=== PATIENT | male | born 1995 | race Caucasian/White ===

== ENCOUNTER 2017-08-31 22:25 | Emergency (ER) | payer OTHER ==
[2017-08-31 22:33] VITALS: TEMP 98.1
[2017-08-31 22:59] LABS: % IMMATURE GRANULYOCYTES 0.4 % (0.0-1.1); ABSOLUTE IMMATURE GRANULOCYTES 0.03 10^3/uL (0.00-0.10); ADD DIFF? NO; ADD MORPH? NO; ADD SCAN? NO; ATYPICAL LYMPHOCYTE FLAG 0 (0-99); FRAGMENT RBC FLAG 0 (0-99); HEMATOCRIT 47.1 % (40.0-51.0); HEMOGLOBIN 16.8 g/dL (13.7-17.5); LEFT SHIFT FLG 0 (0-99); LIPEMIA HEMOLYSIS FLAG 90 (0-99); MEAN CELL HEMOGLOBIN 31.5 pg (27.9-34.1); MEAN CELL HEMOGLOBIN CONCENTR. 35.7 g/dL (32.4-36.7); MEAN CELL VOLUME 88.4 fL (81.5-99.8); MEAN PLATELET VOLUME 9.9 fL (8.7-11.7); PLATELET CLUMPS FLAG 0 (0-99); PLATELET COUNT 196 10^3/uL (150-400); RED BLOOD CELL COUNT 5.33 10^6/uL (4.40-6.38)
--- NOTE | 2017-08-31 23:01 | EDPHY ---
H & P Stated Complaint: slurring words, LIU, N/V yesterday Time Seen by Provider: 08/31/17 22:38 HPI/ROS: Chief Complaint: Seizure HPI: 22-year-old male whose had flu-like symptoms for the last several days had a witnessed possible seizure at 9 o'clock this evening. Patient is girlfriend states that he came home from work early. He has had several episodes of nausea and vomiting. Patient began feeling unwell in stood up. He then proceeded to collapse to the ground and had approximately 20 seconds of whole body shaking. Patient then seemed quite confused when he woke up. He continues to seemed confused. Does have a history of benzodiazepine abuse and states he has been trying to cut back. He also has been cutting back on alcohol. No history of seizures in the past. No head injury. Does have a mild headache. No neck pain or stiffness. No chest pain or abdominal pain. He also states that he has been having significantly increasing heavy workouts recently and has been taking protein supplements. ROS: 10 point Review of Systems is negative except as noted in the HPI. PMH: Substance abuse Social History: Positive smoking, some alcohol, history of benzodiazepine abuse Family History: non-contributory Physical Exam: Gen: Awake, Alert, mildly confused HEENT: Nose: no rhinorrhea Eyes: PERRLA, EOMI Mouth: Moist mucosa Neck: Supple, no JVD, no meningismus Chest: nontender, lungs clear to auscultation Heart: S1, S2 normal, no murmur Abd: Soft, non-tender, no guarding Back: no CVA tenderness, no midline tenderness Ext: no edema, non-tender Skin: no rash Neuro: CN II-XII intact, Sensation grossly intact, Strength 5/5 in bilateral upper and lower extremities - Personal History Current Tetanus/Diphtheria Vaccine: Yes - Medical/Surgical History Hx Asthma: No Hx Chronic Respiratory Disease: No Hx Diabetes: No Hx Cardiac Disease: No Hx Renal Disease: No Hx Cirrhosis: No Hx Alcoholism: No Hx HIV/AIDS: No Hx Splenectomy or Spleen Trauma: No Other PMH: denies - Social History Smoking Status: Current some day smoker Constitutional: Initial Vital Signs Temperature (C) 36.7 C 08/31/17 22:30 Heart Rate 82 08/31/17 22:30 Respiratory Rate 18 08/31/17 22:30 Blood Pressure 91/40 L 08/31/17 22:30 O2 Sat (%) 94 08/31/17 22:30 O2 Delivery Mode Room Air Allergies/Adverse Reactions: amoxicillin [Amoxicillin] Allergy (Verified 08/31/17 22:34) Rash Home Medications: Medication Instructions Recorded NK [No Known Home Meds] 08/31/17 Medical Decision Making - Diagnostics Imaging Results: Imaging Impressions Chest X-Ray 08/31/17 22:49 Impression: Mild central perihilar bronchial wall thickening, but no focal infiltrate. Head CT 08/31/17 22:51 Impression: There is no acute abnormality identified on this unenhanced CT evaluation. If there is further clinical concern regarding the patient's symptoms, MR imaging is suggested, if not otherwise contraindicated. Findings were discussed with Elliott Mike MD at 23:25, on 08/31/2017. ED Course/Re-evaluation: Patient's mental status has cleared. CT scan of the brain is negative. Blood work is unremarkable. Urinalysis shows dehydration. Patient will be discharged with referral for outpatient follow up with Neurology. He has been cautioned not to drive. Patient is afebrile. He has no meningismus. Is otherwise very well appearing. - Data Points Laboratory Results: Laboratory Results 08/31/17 22:47 08/31/17 22:47 09/01/17 08/31/17 08/31/17 01:33 22:47 22:47 WBC 7.87 10^3/uL 10^3/uL (3.80-9.50) RBC 5.33 10^6/uL 10^6/uL (4.40-6.38) Hgb 16.8 g/dL g/dL (13.7-17.5) Hct 47.1 % % (40.0-51.0) MCV 88.4 fL fL (81.5-99.8) MCH 31.5 pg pg (27.9-34.1) MCHC 35.7 g/dL g/dL (32.4-36.7) RDW 12.0 % % (11.5-15.2) Plt Count 196 10^3/uL 10^3/uL (150-400) MPV 9.9 fL fL (8.7-11.7) Neut % (Auto) 83.3 % H % (39.3-74.2) Lymph % (Auto) 9.9 % L % (15.0-45.0) Charles % (Auto) 6.1 % % (4.5-13.0) Eos % (Auto) 0.0 % L % (0.6-7.6) Baso % (Auto) 0.3 % % (0.3-1.7) Nucleat RBC Rel Count 0.0 % % (0.0-0.2) Absolute Neuts (auto) 6.56 10^3/uL H 10^3/uL (1.70-6.50) Absolute Lymphs (auto) 0.78 10^3/uL L 10^3/uL (1.00-3.00) Absolute Monos (auto) 0.48 10^3/uL 10^3/uL (0.30-0.80) Absolute Eos (auto) 0.00 10^3/uL L 10^3/uL (0.03-0.40) Absolute Basos (auto) 0.02 10^3/uL 10^3/uL (0.02-0.10) Absolute Nucleated RBC 0.00 10^3/uL 10^3/uL (0-0.01) Immature Gran % 0.4 % % (0.0-1.1) Immature Gran # 0.03 10^3/uL 10^3/uL (0.00-0.10) Sodium 138 mEq/L mEq/L (134-144) Potassium 3.9 mEq/L mEq/L (3.5-5.2) Chloride 101 mEq/L mEq/L (97-110) Carbon Dioxide 24 mEq/l mEq/l (22-31) Anion Gap 13 mEq/L mEq/L (8-16) BUN 8 mg/dL mg/dL (7-23) Creatinine 0.8 mg/dL mg/dL (0.7-1.3) Estimated GFR > 60 Glucose 182 mg/dL H mg/dL (70-100) POC Glucose Calcium 9.4 mg/dL mg/dL (8.5-10.4) Urine Color YELLOW Urine Appearance MODERATELY TURBID Urine pH 5.0 (5.0-7.5) Ur Specific [place] 1.025 (1.002-1.030) Urine Protein 1+ H (NEGATIVE) Urine Ketones 2+ H (NEGATIVE) Urine Blood NEGATIVE (NEGATIVE) Urine Nitrate NEGATIVE (NEGATIVE) Urine Bilirubin NEGATIVE (NEGATIVE) Urine Urobilinogen NEGATIVE EU EU (0.2-1.0) Ur Leukocyte Esterase NEGATIVE (NEGATIVE) Urine RBC Pending Urine WBC Pending Ur Epithelial Cells Pending Urine Glucose NEGATIVE (NEGATIVE) Urine Opiates Screen Pending Urine Barbiturates Pending Ur Phencyclidine Scrn Pending Ur Amphetamine Screen Pending U Benzodiazepines Scrn Pending Urine Cocaine Screen Pending U Marijuana (THC) Screen Pending 08/31/17 22:42 WBC RBC Hgb Hct MCV MCH MCHC RDW Plt Count MPV Neut % (Auto) Lymph % (Auto) Charles % (Auto) Eos % (Auto) Baso % (Auto) Nucleat RBC Rel Count Absolute Neuts (auto) Absolute Lymphs (auto) Absolute Monos (auto) Absolute Eos (auto) Absolute Basos (auto) Absolute Nucleated RBC Immature Gran % Immature Gran # Sodium Potassium Chloride Carbon Dioxide Anion Gap BUN Creatinine Estimated GFR Glucose POC Glucose 178 mg/dL H mg/dL (70-100) Calcium Urine Color Urine Appearance Urine pH Ur Specific [place] Urine Protein Urine Ketones Urine Blood Urine Nitrate Urine Bilirubin Urine Urobilinogen Ur Leukocyte Esterase Urine RBC Urine WBC Ur Epithelial Cells Urine Glucose Urine Opiates Screen Urine Barbiturates Ur Phencyclidine Scrn Ur Amphetamine Screen U Benzodiazepines Scrn Urine Cocaine Screen U Marijuana (THC) Screen Medications Given: Discontinued Medications Sodium Chloride (Ns) 1,000 mls @ 0 mls/hr IV EDNOW ONE; Wide Open PRN Reason: Protocol Stop: 09/01/17 01:21 Last Admin: 09/01/17 01:30 Dose: 1,000 mls Point of Care Test Results: 08/31/17 22:42 POC Glucose 178 H Departure - Departure Disposition: Home, Routine, Self-Care Clinical Impression: Seizure Condition: Good Instructions: New-Onset Seizure in Adults (ED) Additional Instructions: Follow up with Neurology in 3-4 days for further evaluation. Return to the emergency department for further seizures, nausea, vomiting, worsening headache, fevers, chills, or any other concerns. Referrals: Dillon Armas MD [Primary Care Provider] - As per Instructions Elliott Xiao DO [Medical Doctor] - As per Instructions
[2017-08-31 23:09] LABS: ANION GAP 13 mEq/L (8-16); CALCIUM 9.4 mg/dL (8.5-10.4); CARBON DIOXIDE 24 mEq/l (22-31); CHLORIDE 101 mEq/L (97-110); CREATININE 0.8 mg/dL (0.7-1.3); GLOMERULAR FILTRATION RATE > 60; GLUCOSE 182 mg/dL (70-100); POTASSIUM 3.9 mEq/L (3.5-5.2); SODIUM 138 mEq/L (134-144)
[2017-09-01] MEDS ORDERED: NS 1,000 ML IV ONE (01:20)
[2017-09-01 01:40] LABS: COLOR YELLOW; LEUKOCYTE ESTERASE,URINE NEGATIVE (NEGATIVE); NITRITE,URINE NEGATIVE (NEGATIVE)
[2017-09-01 01:46] LABS: AMORPHOUS PRESENT /hpf (NONE-1+); MUCUS 2+ /lpf (NONE-1+)
[2017-09-01 03:11] VITALS: BP 121/64; PULSE 59; RESP 14; O2SAT 96
== END 2017-09-01 03:11 | disposition home or self-care (01) ==
DX: R56.9 Unspecified convulsions (principal); F17.200 Nicotine dependence, unspecified, uncomplicated; E86.9 Volume depletion, unspecified
CPT/HCPCS: 80305

== ENCOUNTER 2017-10-11 00:01 | Emergency (ER) | payer OTHER ==
[2017-10-11] MEDS ORDERED: NS 1,000 ML IV ONE (00:46)
[2017-10-11 00:48] LABS: % IMMATURE GRANULYOCYTES 0.7 % (0.0-1.1); ABSOLUTE IMMATURE GRANULOCYTES 0.04 10^3/uL (0.00-0.10); ADD DIFF? NO; ADD MORPH? NO; ADD SCAN? NO; ATYPICAL LYMPHOCYTE FLAG 10 (0-99); FRAGMENT RBC FLAG 0 (0-99); HEMATOCRIT 49.3 % (40.0-51.0); HEMOGLOBIN 17.4 g/dL (13.7-17.5); LEFT SHIFT FLG 0 (0-99); LIPEMIA HEMOLYSIS FLAG 90 (0-99); MEAN CELL HEMOGLOBIN 30.6 pg (27.9-34.1); MEAN CELL HEMOGLOBIN CONCENTR. 35.3 g/dL (32.4-36.7); MEAN CELL VOLUME 86.6 fL (81.5-99.8); MEAN PLATELET VOLUME 9.9 fL (8.7-11.7); PLATELET CLUMPS FLAG 10 (0-99); PLATELET COUNT 196 10^3/uL (150-400); RED BLOOD CELL COUNT 5.69 10^6/uL (4.40-6.38); RED CELL DISTRIBUTION WIDTH 11.3 % (11.5-15.2)
[2017-10-11 00:57] LABS: ALANINE AMINOTRANSFERASE 40 IU/L (21-72); ALBUMIN 5.1 g/dL (3.5-5.0); ALKALINE PHOSPHATASE 51 IU/L (38-126); ANION GAP 18 mEq/L (8-16); ASPARTATE AMINOTRANSFERASE 28 IU/L (17-59); CALCIUM 9.8 mg/dL (8.5-10.4); CARBON DIOXIDE 25 mEq/l (22-31); CHLORIDE 104 mEq/L (97-110); CREATININE 0.9 mg/dL (0.7-1.3); ETHANOL SERUM < 10 mg/dL (0-10); GLOMERULAR FILTRATION RATE > 60; GLUCOSE 82 mg/dL (70-100); POTASSIUM 4.3 mEq/L (3.5-5.2); SODIUM 147 mEq/L (134-144); TOTAL PROTEIN 7.9 g/dL (6.3-8.2)
--- NOTE | 2017-10-11 01:33 | EDPHY ---
H & P Stated Complaint: possible SZ Time Seen by Provider: 10/11/17 00:33 HPI/ROS: HPI The patient presents brought in by his mother with altered mental status. Apparently, the patient was found by his roommate sleeping on the couch and was confused, and difficult to arouse. Apparently, he smelled like vomit and the roommate noticed that he had a bump on his forehead as well as some abrasions to his hands. The patient's mother was contacted and she went to his apartment to get him. As she noticed that he was very sleepy but he was able to walk. The patient was diagnosed with a seizure on an ER visit on August 31. At that time he had a normal CT scan of his head performed. He followed up with his primary care doctor and has not followed up with Neurology. He has been feeling well since then. The patient denies any complaints currently. REVIEW OF SYSTEMS Constitutional: No fever, no chills. Eyes: No discharge. ENT: No sore throat. Cardiovascular: No chest pain, no palpitations. Respiratory: No cough, no shortness of breath. Gastrointestinal: No abdominal pain, no vomiting. Genitourinary: No hematuria. Musculoskeletal: No back pain. Skin: No rashes. Neurological: No headache. PMHx: Possible seizure August 31, seen in the ER for this Soc Hx: College student, history of benzodiazepine use in LSD use PHYSICAL General Appearance: Tired appearing, arouses easily, no distress Eyes: Pupils equal and round no pallor or injection ENT, Mouth: Mucous membranes moist Head: There is a 2 cm scalp hematoma to the right frontal region Respiratory: There are no retractions, lungs are clear to auscultation Cardiovascular: Regular rate and rhythm Gastrointestinal: Abdomen is soft and non-tender, no masses, bowel sounds normal Neurological: Sleepy, oriented x3, cranial nerves 2-12 intact, 5/5 strength in upper and lower extremities which is symmetric, no pronator drift, normal finger to nose testing Skin: Warm and dry, no rashes Musculoskeletal: Neck is supple non tender Extremities: symmetrical, full range of motion Psychiatric: Patient is oriented X 3, there is no agitation Source: Patient, Family, Old records Exam Limitations: Clinical condition - Personal History Current Tetanus/Diphtheria Vaccine: Yes Current Tetanus Diphtheria and Acellular Pertussis (TDAP): Yes - Medical/Surgical History Hx Asthma: No Hx Chronic Respiratory Disease: No Hx Diabetes: No Hx Cardiac Disease: No Hx Renal Disease: No Hx Cirrhosis: No Hx Alcoholism: No Hx HIV/AIDS: No Hx Splenectomy or Spleen Trauma: No Other PMH: SZ - Social History Smoking Status: Current some day smoker Constitutional: Initial Vital Signs Temperature (C) 36.7 C 10/11/17 00:04 Heart Rate 83 10/11/17 00:04 Respiratory Rate 16 10/11/17 00:04 Blood Pressure 103/72 10/11/17 00:04 O2 Sat (%) 97 10/11/17 00:04 O2 Delivery Mode Room Air Allergies/Adverse Reactions: amoxicillin [Amoxicillin] Allergy (Verified 10/11/17 00:03) Rash Home Medications: Medication Instructions Recorded NK [No Known Home Meds] 08/31/17 Medical Decision Making Differential Diagnosis: 22-year-old male, recent diagnosis of seizure, presents with confusion and lethargy for the last several hours, found by his roommate sleeping on the couch with bump on his head. Differential diagnosis includes seizure with postictal state, substance abuse, alcohol intoxication, closed head injury. In the emergency department, patient was observed for several hours. Labs were checked and did reveal mild dehydration, otherwise unremarkable. He was reassessed several times and was initially confused, then became more awake and alert and fully oriented. It is possible that he had a seizure, however this is quite a prolonged postictal phase. He denied on several occasions using any drugs or alcohol, however admitted to the nurse that he has been taking clonazepam, which he does not have a prescription for. Urine toxicology was also positive for benzodiazepines. He was counseled on drug use and advised that he needs to stop using this medication. He will be discharged home with his mother. I have advised that he follow up with his primary care doctor. I did not pursue CT scan of his head given that he had improvement in his mental status while in the emergency department. - Data Points Laboratory Results: Laboratory Results 10/11/17 00:39 10/11/17 00:39 10/11/17 10/11/17 10/11/17 06:15 00:39 00:39 WBC 5.65 10^3/uL 10^3/uL (3.80-9.50) RBC 5.69 10^6/uL 10^6/uL (4.40-6.38) Hgb 17.4 g/dL g/dL (13.7-17.5) Hct 49.3 % % (40.0-51.0) MCV 86.6 fL fL (81.5-99.8) MCH 30.6 pg pg (27.9-34.1) MCHC 35.3 g/dL g/dL (32.4-36.7) RDW 11.3 % L % (11.5-15.2) Plt Count 196 10^3/uL 10^3/uL (150-400) MPV 9.9 fL fL (8.7-11.7) Neut % (Auto) 53.3 % % (39.3-74.2) Lymph % (Auto) 38.1 % % (15.0-45.0) [place] % (Auto) 5.8 % % (4.5-13.0) Eos % (Auto) 1.4 % % (0.6-7.6) Baso % (Auto) 0.7 % % (0.3-1.7) Nucleat RBC Rel Count 0.0 % % (0.0-0.2) Absolute Neuts (auto) 3.01 10^3/uL 10^3/uL (1.70-6.50) Absolute Lymphs (auto) 2.15 10^3/uL 10^3/uL (1.00-3.00) Absolute Monos (auto) 0.33 10^3/uL 10^3/uL (0.30-0.80) Absolute Eos (auto) 0.08 10^3/uL 10^3/uL (0.03-0.40) Absolute Basos (auto) 0.04 10^3/uL 10^3/uL (0.02-0.10) Absolute Nucleated RBC 0.00 10^3/uL 10^3/uL (0-0.01) Immature Gran % 0.7 % % (0.0-1.1) Immature Gran # 0.04 10^3/uL 10^3/uL (0.00-0.10) Sodium 147 mEq/L H mEq/L (134-144) Potassium 4.3 mEq/L mEq/L (3.5-5.2) Chloride 104 mEq/L mEq/L (97-110) Carbon Dioxide 25 mEq/l mEq/l (22-31) Anion Gap 18 mEq/L H mEq/L (8-16) BUN 13 mg/dL mg/dL (7-23) Creatinine 0.9 mg/dL mg/dL (0.7-1.3) Estimated GFR > 60 Glucose 82 mg/dL mg/dL (70-100) Calcium 9.8 mg/dL mg/dL (8.5-10.4) Total Bilirubin 1.0 mg/dL mg/dL (0.1-1.4) AST 28 IU/L IU/L (17-59) ALT 40 IU/L IU/L (21-72) Alkaline Phosphatase 51 IU/L IU/L (38-126) Total Protein 7.9 g/dL g/dL (6.3-8.2) Albumin 5.1 g/dL H g/dL (3.5-5.0) Urine Opiates Screen NEGATIVE (NEGATIVE) Urine Barbiturates NEGATIVE (NEGATIVE) Ur Phencyclidine Scrn NEGATIVE (NEGATIVE) Ur Amphetamine Screen NEGATIVE (NEGATIVE) U Benzodiazepines Scrn NON-NEGATIVE H (NEGATIVE) Urine Cocaine Screen NEGATIVE (NEGATIVE) U Marijuana (THC) Screen NEGATIVE (NEGATIVE) Ethyl Alcohol < 10 mg/dL mg/dL (0-10) Medications Given: Discontinued Medications Sodium Chloride (Ns) 1,000 mls @ 0 mls/hr IV EDNOW ONE; Wide Open PRN Reason: Protocol Stop: 10/11/17 00:47 Last Admin: 10/11/17 01:10 Dose: 1,000 mls Departure - Departure Disposition: Home, Routine, Self-Care Clinical Impression: Benzodiazepine misuse Altered mental status Qualifiers: Altered mental status type: disorientation Qualified Code(s): R41.0 - Disorientation, unspecified Condition: Good Instructions: Altered Mental Status (ED) Additional Instructions: I would like for you to follow up with your primary care doctor in the next 1-2 days. You should return to the emergency department if your worse in any way. Please be careful about alcohol and drug use as this can contribute to your symptoms. It is unclear if you had a seizure and because of this I think you may need a referral to a neurologist. Referrals: Dillon Armas MD [Primary Care Provider] - As per Instructions
[2017-10-11 06:59] VITALS: BP 103/55; PULSE 61; RESP 16; TEMP 98.2; O2SAT 98
== END 2017-10-11 06:57 | disposition home or self-care (01) ==
DX: R41.0 Disorientation, unspecified (principal); F19.988 Other psychoactive substance use, unspecified with other psychoactive substance-induced disorder; F17.200 Nicotine dependence, unspecified, uncomplicated; E86.9 Volume depletion, unspecified
CPT/HCPCS: 80305; G0480

== ENCOUNTER 2019-01-20 07:26 | Emergency (ER) | payer OTHER ==
--- NOTE | 2019-01-20 07:51 | EDPHY ---
H & P Time Seen by Provider: 01/20/19 07:47 HPI/ROS: Chief complaint. Anxiety HPI. Patient is a 23-year-old male presents with anxiety and inability to sleep. He has a history of substance abuse specifically benzodiazepine a use. He has been through treatment plan and no longer using benzodiazepine. 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 He works 60-80 hours per week and has had increased baseline anxiety to the point where he can't sleep. He would like mental health evaluation. He tells me he is not suicidal or homicidal. He fell skiing several days ago and has pain to the right anterior chest and is concerned he has a rib fracture. No shortness of breath however. No head injury or neck pain. ROS 10 systems were reviewed and negative with the exception of the elements mentioned in the history of present illness Past Medical/Surgical History: Substance abuse disorder, possible seizure, benzodiazepine abuse in the past Social History: Single, daily smoker, no alcohol Smoking Status: Current every day smoker Physical Exam: General Appearance: Alert well-developed male mild distress. Vital signs significant heart rate 105 Eyes: Pupils equal and round no pallor or injection. ENT, Mouth: Mucous membranes are moist. Respiratory: There are no retractions, lungs are clear to auscultation. Cardiovascular: Regular rate and rhythm. Gastrointestinal: Abdomen is soft and nontender, no masses, bowel sounds normal. Neurological: Awake and alert, sensory and motor exams grossly normal. Skin: Warm and dry, no rashes. Musculoskeletal: Neck is supple nontender. Tenderness to the right chest wall at about T6 midclavicular line Extremities symmetrical, full range of motion. Psychiatric: Patient is oriented X 3, there is no agitation. Constitutional: Initial Vital Signs Temperature (C) 37 C 01/20/19 07:31 Heart Rate 105 H 01/20/19 07:31 Respiratory Rate 16 01/20/19 07:31 Blood Pressure 157/94 H 01/20/19 07:31 O2 Sat (%) 94 01/20/19 07:31 O2 Delivery Mode Room Air Allergies/Adverse Reactions: amoxicillin [Amoxicillin] Allergy (Verified 10/11/17 00:03) Rash Home Medications: Medication Instructions Recorded Melatonin 01/20/19 Zolpidem Tartrate [Ambien] 10 mg PO HS PRN #5 tablet 01/20/19 Medical Decision Making - Diagnostics Imaging Results: Imaging Impressions Chest X-Ray 01/20/19 07:57 Impression: Normal. Chest x-ray interpreted by me is negative for fracture or pneumothorax Procedures: Mental health evaluation labs are obtained ED Course/Re-evaluation: Patient has been evaluated by mental health. They feel he is appropriate for outpatient management given him resources. They asked me if I would prescribe some sleep med for the next several days for the patient. - Data Points Laboratory Results: Laboratory Results 01/20/19 08:10 01/20/19 08:10 01/20/19 01/20/19 01/20/19 08:10 08:10 08:00 WBC 7.04 10^3/uL 10^3/uL (3.80-9.50) RBC 5.26 10^6/uL 10^6/uL (4.40-6.38) Hgb 16.5 g/dL g/dL (13.7-17.5) Hct 47.0 % % (40.0-51.0) MCV 89.4 fL fL (81.5-99.8) MCH 31.4 pg pg (27.9-34.1) MCHC 35.1 g/dL g/dL (32.4-36.7) RDW 11.4 % L % (11.5-15.2) Plt Count 234 10^3/uL 10^3/uL (150-400) MPV 9.7 fL fL (8.7-11.7) Neut % (Auto) 73.1 % % (39.3-74.2) Lymph % (Auto) 17.2 % % (15.0-45.0) [place] % (Auto) 8.9 % % (4.5-13.0) Eos % (Auto) 0.3 % L % (0.6-7.6) Baso % (Auto) 0.4 % % (0.3-1.7) Nucleat RBC Rel Count 0.0 % % (0.0-0.2) Absolute Neuts (auto) 5.14 10^3/uL 10^3/uL (1.70-6.50) Absolute Lymphs (auto) 1.21 10^3/uL 10^3/uL (1.00-3.00) Absolute Monos (auto) 0.63 10^3/uL 10^3/uL (0.30-0.80) Absolute Eos (auto) 0.02 10^3/uL L 10^3/uL (0.03-0.40) Absolute Basos (auto) 0.03 10^3/uL 10^3/uL (0.02-0.10) Absolute Nucleated RBC 0.00 10^3/uL 10^3/uL (0-0.01) Immature Gran % 0.1 % % (0.0-1.1) Immature Gran # 0.01 10^3/uL 10^3/uL (0.00-0.10) Sodium 138 mEq/L mEq/L (135-145) Potassium 4.0 mEq/L mEq/L (3.5-5.2) Chloride 105 mEq/L mEq/L (97-110) Carbon Dioxide 22 mEq/l mEq/l (22-31) Anion Gap 11 mEq/L mEq/L (6-14) BUN 14 mg/dL mg/dL (7-23) Creatinine 0.8 mg/dL mg/dL (0.7-1.3) Estimated GFR > 60 Glucose 101 mg/dL H mg/dL (70-100) Calcium 9.5 mg/dL mg/dL (8.5-10.4) Urine Opiates Screen NEGATIVE (NEGATIVE) Acetaminophen < 10 mcg/mL L mcg/mL (10-30) Urine Barbiturates NEGATIVE (NEGATIVE) Ur Phencyclidine Scrn NEGATIVE (NEGATIVE) Ur Amphetamine Screen NEGATIVE (NEGATIVE) U Benzodiazepines Scrn NEGATIVE (NEGATIVE) Urine Cocaine Screen NEGATIVE (NEGATIVE) U Marijuana (THC) Screen NON-NEGATIVE H (NEGATIVE) Ethyl Alcohol < 10 mg/dL mg/dL (0-10) Departure - Departure Disposition: Home, Routine, Self-Care Clinical Impression: Anxiety Insomnia Qualifiers: Insomnia type: unspecified Qualified Code(s): G47.00 - Insomnia, unspecified Condition: Good Instructions: Insomnia (ED) Additional Instructions: Follow-up with mental health with resources provided Ambien to help with sleep. Return for worsening symptoms Referrals: NONE *PRIMARY CARE P,. [Primary Care Provider] - As per Instructions [facility] [Outside] - 2-3 days, call for appt. Stand Alone Forms: Work Excuse Prescriptions: Zolpidem Tartrate [Ambien] 10 mg PO HS PRN #5 tablet PRN Reason: Sleep/Insomnia
[2019-01-20 08:30] LABS: PLATELET COUNT 234 10^3/uL (150-400)
[2019-01-20 12:15] VITALS: BP 148/75
== END 2019-01-20 12:14 | disposition home or self-care (01) ==
DX: F41.9 Anxiety disorder, unspecified (principal); G47.00 Insomnia, unspecified; F17.200 Nicotine dependence, unspecified, uncomplicated
CPT/HCPCS: 80305; G0480